=== PATIENT | female | born 1945 | race Two or more races ===

== ENCOUNTER 2025-07-14 21:44 | Emergency (ER) | payer MEDICARE, BC ==
[~2025-07-14] VITALS: Ht 165.1 cm; Wt 58.1 kg
[2025-07-14] MEDS ORDERED: MECLIZINE HCL 25 MG TABLET ONE (22:35)
[2025-07-14] MEDS ORDERED: oxyCODONE/APAP (5/325 MG) 1 UDTAB TABLET ONE (22:35)
[2025-07-14] MEDS: MECLIZINE HCL 12.5 MG TABLET PO ONE (22:39)
[2025-07-14] MEDS: oxyCODONE/APAP (5/325 MG) 1 UDTAB TABLET PO ONE (22:39)
[2025-07-14 22:45] LABS: PLATELET COUNT (AUTO) 197 K/uL (150-450); RED BLOOD CELL COUNT(AUTO) 4.12 MIL/uL (4.0-5.2); RED CELL DISTRIBUTION WIDTH 14.7 % (11.5-15.0); WHITE BLOOD COUNT (AUTO) 7.2 K/uL (4.3-11.0)
[2025-07-14 22:52] LABS: CALCIUM, SERUM 9.4 mg/dL (8.5-10.1); CREATININE 1.3 mg/dL (0.6-1.3); SODIUM SERUM 139 mmol/L (136-145); UREA NITROGEN, BLOOD 38 mg/dL (7-18)
[2025-07-14 23:05] LABS: ASPARTATE AMINOTRANSFERASE 21 U/L (15-37); NT-PRO BNP 447 pg/mL (0-125); TOTAL PROTEIN, SERUM 7.0 g/dL (6.4-8.2)
[2025-07-15] MEDS ORDERED: KETOROLAC TROMETHAMINE INJ 30 MG/ML VIAL ONE (01:04)
[2025-07-15] MEDS: KETOROLAC TROMETHAMINE INJ 30 MG/ML VIAL IM ONE (01:15)
[2025-07-15] MEDS ORDERED: KETO10TA2 PO (01:31)
[2025-07-15] MEDS ORDERED: CYCL5TAB PO (01:31)
[2025-07-15 01:45] VITALS: BP 144/71; TEMP 98.3; O2SAT 97
== END 2025-07-15 02:50 | disposition home or self-care (01) ==
LOC: ER 21:49
DX: R42 Dizziness and giddiness (principal); R51.9 Headache, unspecified; I10 Essential (primary) hypertension; R06.02 Shortness of breath; Z85.72 Personal history of non-Hodgkin lymphomas; Z88.5 Allergy status to narcotic agent; Z91.040 Latex allergy status; W18.30XA Fall on same level, unspecified, initial encounter; Y93.89 Activity, other specified; Y92.89 Other specified places as the place of occurrence of the external cause; Y99.8 Other external cause status
CPT/HCPCS: 99285; 70450; 93005; 74176; 85025; 80048; 80076; 36415; 84484; 83880; 96372; J8597; J1885